=== PATIENT | male | born 1985 | race American Indian/Alaskan Native ===

== ENCOUNTER 2018-02-15 15:15 | Emergency (ER) | payer OTHER ==
[~2018-02-15] VITALS: Ht 170.2 cm; Wt 63.1 kg
[2018-02-15 15:17] VITALS: BP 136/80
== END 2018-02-15 15:44 | disposition home or self-care (01) ==
LOC: ER 15:15
DX: R05 Cough (principal); R07.9 Chest pain, unspecified; H92.02 Otalgia, left ear
CPT/HCPCS: 99281

== ENCOUNTER 2018-04-03 15:33 | Emergency (ER) | payer OTHER ==
[~2018-04-03] VITALS: Ht 170.2 cm; Wt 64.5 kg
[2018-04-03 15:51] VITALS: BP 123/76
== END 2018-04-03 18:11 | disposition home or self-care (01) ==
LOC: ER 15:34
DX: F41.9 Anxiety disorder, unspecified (principal)
CPT/HCPCS: 99284